=== PATIENT | female | born 1995 | race Caucasian/White ===

== ENCOUNTER 2018-02-24 17:56 | Emergency (ER) | payer OTHER ==
[2018-02-24 17:56] VITALS: BMI 36.6
[2018-02-24 18:22] VITALS: O2SAT 100
[2018-02-24 18:51] LABS: HCG,QUALITATIVE URINE POSITIVE (NEGATIVE); SQUAMOUS EPITHIAL 2 /hpf (0-5); URINE AMORPHOUS SEDIMENT FEW /ul (<OCC); URINE BACTERIA RARE (<OCC); URINE BILIRUBIN NEGATIVE (NEGATIVE); URINE BLOOD 2+ (NEGATIVE); URINE CLARITY Hazy (Clear); URINE COLOR Yellow (YELLOW); URINE GLUCOSE (UA) NORMAL (Normal); URINE LEUKOCYTE ESTERASE NEG Leu/uL (Negative); URINE PROTEIN 1+ mg/dL (NEGATIVE)
[2018-02-24] MEDS ORDERED: Sodium Chloride 0.9% 1,000 ML IV ONE (19:11)
--- NOTE | 2018-02-24 19:23 | C.PDOC ---
History Of Present Illness 22 year old female , , presents to the ED c/o vaginal bleeding and suprapubic abdominal pain. Patient reports she found out she was on 02/14/18. Patient had a positive home test but no blood work done. Patient denies fever, chills, nausea, vomit, diarrhea, vaginal discharge, rash, back pain. Time Seen by Provider: 02/24/18 19:12 Chief Complaint (Nursing): Female Genitourinary History Per: Patient History/Exam Limitations: no limitations Onset/Duration Of Symptoms: Days Current Symptoms Are (Timing): Still Present Quality Of Discomfort: "Pain" Associated Symptoms: denies: Nausea, Vomiting, Diarrhea, Urinary Symptoms Recent travel outside of the [place]: No Additional History Per: Patient Abnormal Vaginal Bleeding: Yes Last Menstral Period: 01/16/18 : 3 Para: 1 Past Medical History Reviewed: Historical Data, Nursing Documentation, Vital Signs Vital Signs: Last Vital Signs Temp 98.4 F 02/24/18 18:17 Pulse 50 L 02/24/18 18:17 Resp 20 02/24/18 18:17 BP 109/70 02/24/18 18:17 Pulse Ox 100 02/24/18 18:17 - Medical History PMH: Peripheral Edema (+2 pitting ble history) Denies: Anxiety, Bipolar Disorder, Depression, Chronic Kidney Disease, Schizophrenia Surgical History: No Surg Hx Family History: States: Unknown Family Hx - Social History Hx Alcohol Use: Yes (occassional) Hx Substance Use: Yes Review Of Systems Constitutional: Negative for: Fever, Chills Cardiovascular: Negative for: Chest Pain Respiratory: Negative for: Shortness of Breath Gastrointestinal: Positive for: Abdominal Pain. Negative for: Nausea, Vomiting, Diarrhea Genitourinary: Positive for: Vaginal Bleeding. Negative for: Dysuria, Hematuria, Vaginal Discharge Musculoskeletal: Negative for: Back Pain Skin: Negative for: Rash Neurological: Negative for: Weakness, Numbness Physical Exam - Physical Exam Appears: Non-toxic, No Acute Distress Skin: Warm, Dry Head: Normacephalic Eye(s): bilateral: Normal Inspection Oral Mucosa: Moist Neck: Supple Chest: Symmetrical Cardiovascular: Rhythm Regular Respiratory: No Rales, No Rhonchi, No Wheezing Gastrointestinal/Abdominal: Soft, Tenderness (mild suprapubic), No Guarding, No Rebound Back: No CVA Tenderness Extremity: Bilateral: Atraumatic, Normal Color And Temperature, Normal ROM Neurological/Psych: Oriented x3, Normal Speech, Normal Cognition Gait: Steady ED Course And Treatment - Laboratory Results Result Diagrams: 02/24/18 19:34 02/24/18 19:34 Lab Results: Urine Color Yellow (YELLOW) 02/24/18 18:33 Urine Clarity Hazy (Clear) 02/24/18 18:33 Urine pH 7.0 (5.0-8.0) 02/24/18 18:33 Ur Specific [place] 1.019 (1.003-1.030) 02/24/18 18:33 Urine Protein 1+ mg/dL (NEGATIVE) H 02/24/18 18:33 Urine Glucose (UA) Normal mg/dL (Normal) 02/24/18 18:33 Urine Ketones Negative mg/dL (NEGATIVE) 02/24/18 18:33 Urine Blood 2+ (NEGATIVE) H 02/24/18 18:33 Urine Nitrate Negative (NEGATIVE) 02/24/18 18:33 Urine Bilirubin Negative (NEGATIVE) 02/24/18 18:33 Urine Urobilinogen 2.0 mg/dL (0.2-1.0) H 02/24/18 18:33 Ur Leukocyte Esterase Neg Lisa/uL (Negative) 02/24/18 18:33 Urine WBC (Auto) < 1 /hpf (0-5) 02/24/18 18:33 Urine RBC (Auto) 10 /hpf (0-3) H 02/24/18 18:33 Ur Squamous Epith Cells 2 /hpf (0-5) 02/24/18 18:33 Amorphous Sediment Few /ul (<OCC) H 02/24/18 18:33 Urine Bacteria Rare (<OCC) 02/24/18 18:33 Urine HCG, Qual Positive (NEGATIVE) 02/24/18 18:33 Urine HCG, Qual Positive (NEGATIVE) 02/24/18 18:33 O2 Sat by Pulse Oximetry: 100 (ON RA) Pulse Ox Interpretation: Normal Progress Note: Plan: - Labs. - IV fluids. - UA Medical Decision Making Medical Decision Making: Upon provider reevaluation patient is feeling better, is medically stable, and requires no further treatment in the ED at this time. Patient will be discharged home . Counseling was provided and all questions were answered regarding diagnosis and need for follow up with the referred clinic. There is agreement to discharge plan. Return if symptoms persist or worsen. Disposition Counseled Patient/Family Regarding: Studies Performed, Diagnosis, Need For Followup - Disposition Referrals: [facility] [Outside] [facility] [Outside] Disposition: HOME/ ROUTINE Disposition Time: 20:00 Condition: FAIR Additional Instructions: Please return if symptoms recur and have BhCG level repeated in 5-7 days. Instructions: Threatened Miscarriage (DC) Forms: [employer] (Ukrainian) - Clinical Impression Clinical Impression: Threatened - Scribe Statement The provider has reviewed the documentation as recorded by the Scribe Donal Dior All medical record entries made by the Scribe were at my direction and personally dictated by me. I have reviewed the chart and agree that the record accurately reflects my personal performance of the history, physical exam, medical decision making, and the department course for this patient. I have also personally directed, reviewed, and agree with the discharge instructions and disposition.
[2018-02-24 19:37] LABS: BASO % 0.7 % (0.0-2.0); EOS # 0.1 K/uL (0.0-0.7); EOS % 1.3 % (0.0-4.0); HEMOGLOBIN 12.3 g/dL (11.0-16.0); LYMPH % 44.3 % (20.0-40.0); MEAN CELL VOLUME 89.8 fL (81.0-99.0); MEAN CORPUSCULAR HEMOGLOBIN 30.3 pg (27.0-31.0); MEAN CORPUSCULAR HGB CONC 33.7 g/dL (33.0-37.0); MEAN PLATELET VOLUME 8.3 fL (7.2-11.7); MONO # 0.6 K/uL (0.0-0.8); MONO % 12.6 % (0.0-10.0); NEUT # 1.8 K/uL (1.8-7.0); NEUT % 41.1 % (50.0-75.0); NRBC % 0.1 % (0.0-2.0); RBC 4.05 Mil/uL (3.80-5.20); RED CELL DISTRIBUTION WIDTH 13.7 % (11.5-14.5); WHITE BLOOD COUNT 4.5 K/uL (4.8-10.8)
[2018-02-24 19:50] LABS: ALB/GLOB RATIO 1.3 (1.0-2.1); ALBUMIN 3.9 g/dL (3.5-5.0); ALT/SGPT 10 U/L (9-52); AST/SGOT 20 U/L (14-36); BLOOD UREA NITROGEN 9 mg/dL (7-17); CALCIUM 8.6 mg/dl (8.6-10.4); GFR NON-AFRICAN AMERICAN > 60
[2018-02-24 20:11] VITALS: RESP 16
[2018-02-24 21:29] VITALS: BP 117/73; PULSE 49; TEMP 98.1
== END 2018-02-24 21:28 | disposition home or self-care (01) ==
LOC: C.ER 17:56
DX: O20.0 Threatened abortion (principal); Z3A.00 Weeks of gestation of pregnancy not specified
CPT/HCPCS: 80053; 81001; 84702; 84703; 85025; 86850; 86900; 99284; J7030